=== PATIENT | male | born 1980 | race Caucasian/White ===

== ENCOUNTER 2019-11-06 17:47 | Emergency (ER) | payer SELFPAY ==
[~2019-11-06] VITALS: Ht 172.7 cm; Wt 81.6 kg
[2019-11-06 17:59] VITALS: BP 131/79; Ht 172.7 cm; Wt 81.6 kg
== END 2019-11-06 18:33 | disposition left against medical advice (07) ==
LOC: ED 17:47
DX: R07.89 Other chest pain (principal); R06.02 Shortness of breath

== ENCOUNTER 2020-04-06 16:23 | Emergency (ER) | payer OTHER | END 2020-04-06 18:02 | disposition other institution (70) | LOC: ED 16:23 | DX: Z02.89 Encounter for other administrative examinations (principal) ==

== ENCOUNTER 2020-04-06 16:23 | Emergency (ER) | payer OTHER ==
[~2020-04-06] VITALS: Ht 175.3 cm; Wt 86.2 kg
[2020-04-06 16:35] VITALS: Ht 175.3 cm; Wt 86.2 kg
[2020-04-06 18:02] VITALS: BP 122/81
== END 2020-04-06 18:03 | disposition other institution (70) ==
LOC: ED 16:23
DX: G40.909 Epilepsy, unspecified, not intractable, without status epilepticus (principal); R51 Headache; R11.0 Nausea; K02.9 Dental caries, unspecified; Z59.0 Homelessness